=== PATIENT | female | born 1980 | race Caucasian/White ===

== ENCOUNTER → 2024-07-15 14:15 | Outpatient (BNVA) | payer OTHER, SELFPAY | PROVIDERS: Visit Provider Emergency Medicine | DX: R50.9 Fever, unspecified (principal) | CPT/HCPCS: 87400 ==

== ENCOUNTER 2024-10-23 13:44 | Emergency (ER) | payer SELFPAY ==
[2024-10-23 13:59] VITALS: BP 153/78; PULSE 91; RESP 14; TEMP 37; O2SAT 97; BMI 32.9
--- NOTE | 2024-10-23 14:04 | ED_ITS ---
HPI - Fever 2 General: Chief Complaint: Back Pain/Injury Stated Complaint: Low back pain Time Seen by Provider: 10/23/24 13:59 History of Present Illness: 44 yo female patient presents to ER with c/o low back pain for 4-5 days. Pt denies any injury or trauma. Pt states everything feels tight. Pt denies any fever, loss of bowel or bladder or numbness or tingling. Related Data Home Medications ?Medication ?Instructions ?Recorded ?Confirmed ibuprofen 200 mg tablet (Advil) 800 mg PO Q6H PRN Feve r Or Pain 10/23/24 10/23/24 Previous Rx's ?Medication ?Instructions ?Recorded albuterol sulfate 90 mcg/actuation 2 puff inhalation Q 6H PRN 07/15/24 aerosol inhaler shortness of breath or wheez ing #8.5 grams prednisone 20 mg tablet 20 mg PO BID 5 days #10 tabs 10/23/24 tizanidine 4 mg tablet 2 mg (1/2 x 4 mg) PO TID PRN 10/23/24 muscle spasticity #20 tabs Allergies Allergy/AdvReac Type Severity Reaction Status Date / Time No Known Allergies Allergy Verified 10/23/24 14:06 Review of Systems 2 General: Reports: 10 or more systems reviewed and unremarkable except in HPI and below PFSH ED 2 PFSH: Social History Smoking and tobacco/nicotine status: never used tobacco/nicotine Physical Exam 2 Const: COMMON NORMALS: no acute distress, patient oriented x3 and no limitations GENERAL APPEARANCE: cooperative, comfortable and well developed ORIENTATION/CONSCIOUSNESS: Yes awake, Yes oriented to person, Yes oriented to place and Yes oriented to time Resp: COMMON NORMALS: normal respiratory effort Cardio: COMMON NORMALS: regular rate and regular rhythm RATE: regular rate RHYTHM: regular rhythm Extremity: COMMON NORMALS: normal to inspection, full ROM and capillary refill normal Neuro: COMMON NORMALS: patient oriented x3, moves all extremities, no focal motor deficits and no sensory deficits noted SENSORIUM/ORIENTATION: Yes oriented to person, Yes oriented to place and Yes oriented to time Psych: COMMON NORMALS: mental status grossly normal and Normal thought process present THOUGHT PROCESS: Normal thought process present Skin: COMMON NORMALS: no rashes or lesions noted GENERAL SKIN EXAM: no rashes or lesions noted Course 2 Vital Signs: Vital signs: Vital Signs Temperature 98.6 F 10/23/24 13:59 Pulse Rate 84 10/23/24 16:00 Respiratory Rate 14 10/23/24 13:59 Blood Pressure 142/87 10/23/24 16:00 Pulse Oximetry 98 10/23/24 16:00 Oxygen Delivery Me thod Room Air 10/23/24 16:00 MDM - Fever Medical Decision Making emale patient presents to ER with c/o low back pain for 4-5 days. Pt denies any injury or trauma. Pt states everything feels tight. Pt denies any fever, loss of bowel or bladder or numbness or tingling. Pt denies any midline tenderness. Pt has no CVA tendernss. CT abd pelvis negative for any acute findings no obstruction or stone noted. Pt was given toradol and states pain is better. UA is without evidence of onfection. will send home with short course of steroids and muscle relaxer as well as return precautions and follow up Lab Data 10/23/24 15:19 10/23/24 15:19 Radiology Impressions Abdomen/Pelvis CT 10/23/24 15:01 IMPRESSION: 1. No acute findings. 2. No urinary calculi. 3. Chronic findings. Laboratory Results WBC 9.92 10^3/uL (3.29-11.43) 10/23/24 15:19 RBC 4.80 10^6/uL (3.85-5.65) 10/23/24 15:19 Hgb 11.90 g/dL (11.27-16.99) 10/23/24 15:19 Hct 37.7 % (36-47) 10/23/24 15:19 MCV 78.5 fl (85-98) L 10/23/24 15:19 MCH 24.8 pg (27-33) L 10/23/24 15:19 MCHC 31.6 g/dL (30-55) 10/23/24 15:19 RDW 15.9 % (12.1-15.1) H 10/23/24 15:19 Plt Count 316 10^3/cmm (157-399) 10/23/24 15:19 MPV 9.3 fL (7.4-10.4) 10/23/24 15:19 Neut % (Auto) 66.6 % 10/23/24 15:19 Lymph % (Auto) 21.9 % 10/23/24 15:19 [place] % (Auto) 6.7 % 10/23/24 15:19 Eos % (Auto) 3.8 % 10/23/24 15:19 Baso % (Auto) 0.6 % 10/23/24 15:19 Neut # (Auto) 6.61 10^3/uL (1.8-7.7) 10/23/24 15:19 Lymph # (Auto) 2.2 10^3/uL (0.8-4.8) 10/23/24 15:19 [place] # (Auto) 0.7 10^3/uL (0.2-0.9) 10/23/24 15:19 Eos # (Auto) 0.4 10^3/uL (0.0-0.8) 10/23/24 15:19 Baso # (Auto) 0.1 10^3/uL (0.0-0.1) 10/23/24 15:19 Nucleated RBC % (auto) 0 % 10/23/24 15:19 Nucleated RBCs # 0.0 /100WBC 10/23/24 15:19 Sodium 137 mmol/L (136-145) 10/23/24 15:19 Potassium 3.9 mmol/L (3.5-5.1) 10/23/24 15:19 Chloride 107 mmol/L (98-107) 10/23/24 15:19 Carbon Dioxide 21 mmol/L (22-29) L 10/23/24 15:19 Anion Gap 12.9 (5-19) 10/23/24 15:19 BUN 13 mg/dL (6-20) 10/23/24 15:19 Creatinine 0.8 mg/dL (0.5-0.9) 10/23/24 15:19 GFR Calculation 77.6 mL/min (90-130) L 10/23/24 15:19 Glucose 127 mg/dL (65-115) H 10/23/24 15:19 Calculated Osmolality 286 mOsm/kg (285-295) 10/23/24 15:19 Calcium 9.0 mg/dL (8.5-10.5) 10/23/24 15:19 Total Bilirubin 0.2 mg/dL (0.15-1.2) 10/23/24 15:19 AST 14 U/L (0-32) 10/23/24 15:19 ALT 12 U/L (0-33) 10/23/24 15:19 Alkaline Phosphatase 88 U/L (35-105) 10/23/24 15:19 Total Protein 6.9 g/dL (6.6-8.7) 10/23/24 15:19 Albumin 3.9 g/dL (3.5-5.2) 10/23/24 15:19 Globulin 3.0 g/dL (1.3-4.6) 10/23/24 15:19 Urine Color Yellow (Yellow) 10/23/24 14:48 Urine Appearance Clear (CLEAR) 10/23/24 14:48 Urine pH 5.0 (5-7) 10/23/24 14:48 Ur Specific [place] 1.027 (1.005-1.030) 10/23/24 14:48 Urine Protein Negative (Negative) 10/23/24 14:48 Urine Glucose (UA) Negative (Normal) 10/23/24 14:48 Urine Ketones Trace (Negative) 10/23/24 14:48 Urine Blood Trace (Negative) A 10/23/24 14:48 Urine Nitrate Negative (Negative) 10/23/24 14:48 Urine Bilirubin Negative (Negative) 10/23/24 14:48 Urine Urobilinogen 1.0 mg/dL (Negative) 10/23/24 14:48 Ur Leukocyte Esterase Negative (Negative) 10/23/24 14:48 Urine RBC 0-2 /hpf (0-2) 10/23/24 14:48 Urine WBC 0-5 /hpf (0-5) 10/23/24 14:48 Ur Squamous Epith Cells 0-5 /hpf (0-5) 10/23/24 14:48 Amorphous Sediment Not Reportable 10/23/24 14:48 Urine Bacteria None seen /hpf (NONE) 10/23/24 14:48 Hyaline Casts 2.05 /lpf 10/23/24 14:48 All radiology interpretation(s) finalized by discharge Discharge Plan Discharge Patient Disposition: Home Clinical Impression: Strain of lumbar region Qualifiers: Encounter type: initial encounter Qualified Code(s): S39.012A - Strain of muscle, fascia and tendon of lower back, initial encounter Condition: Stable Prescriptions: New prednisone 20 mg tablet 20 mg PO BID 5 Days Qty: 10 0RF tizanidine 4 mg tablet 2 mg PO TID PRN (Reason: muscle spasticity) Qty: 20 0RF No Action albuterol sulfate 90 mcg/actuation HFA aerosol inhaler 2 puff inhalation Q6H PRN (Reason: shortness of breath or wheezing) Qty: 8.5 0RF ibuprofen [Advil] 200 mg Tablet 800 mg PO Q6H PRN (Reason: Fever Or Pain) Discharge Orders: Discharge ED (Routine); Ordered 10/23/24 Ordered By: Virgen Nolen Discharge Diet: Advance as tolerated Discharge Activity: Increase activity as tolerated Patient Instructions: Opioid Safety, Pain Management, Acute Low Back Pain (ED) Activity Restrictions/Additional Instructions: Return to ER if emale patient presents to ER with c/o low back pain for 4-5 days. Pt denies any injury or trauma. Pt states everything feels tight. Pt denies any fever, loss of bowel or bladder or numbness or tingling. Take meds as prescribed Please do not drive or operate heavy machinery while taking tizanadine Print Language: Libyan Coding Level of Care Code ED Cow Trimmer for Olvin Yu
[2024-10-23 14:45] VITALS: BP 180/95; PULSE 100; O2SAT 97
[2024-10-23] MEDS: ketorolac 30 mg/mL INJ IM (14:52)
[2024-10-23 14:54] LABS: Bilirubin Urine Negative (Negative); Blood Urine Trace (Negative); Glucose Urine UA Negative (Normal); Ketones Urine Trace (Negative); Leukocyte Esterase Urine Negative (Negative); Nitrate Urine Negative (Negative); Protein Urine Negative (Negative); Specific Gravity, Urine 1.027 (1.005-1.030); Urine Appearance Clear (CLEAR); Urine Color Yellow (Yellow)
[2024-10-23 14:56] LABS: Add Urine Microscopic? YES; Bacteria Urine None Seen /hpf; Hyaline Casts Urine 2.05 /lpf; RBC Urine 0-2 /hpf (0-2); Squamous Epithelial Cell Urine 0-5 /hpf (0-5); WBC Urine 0-5 /hpf (0-5)
--- NOTE | 2024-10-23 15:01 | CTR_ITS ---
PROCEDURE INFORMATION: Exam: CT Abdomen And Pelvis Without Contrast Exam date and time: 10/23/2024 3:33 PM Age: 44 years old Clinical indication: Low back pain x 4 days; Additional info: Stone TECHNIQUE: Imaging protocol: Computed tomography of the abdomen and pelvis without contrast. Radiation optimization: All CT scans at this facility use at least one of these dose optimization techniques: automated exposure control; mA and/or kV adjustment per patient size (includes targeted exams where dose is matched to clinical indication); or iterative reconstruction. COMPARISON: No relevant prior studies available. RADIATION DOSE METRICS: Total DLP (mGy-cm): 893.13 FINDINGS: Lungs: Bilateral dependent pulmonary atelectasis is demonstrated within the lungs. Liver: Unremarkable. No mass. Gallbladder and biliary ducts: Unremarkable. No calcified stones. No ductal dilation. Pancreas: Unremarkable. Spleen: Unremarkable. No splenomegaly. Adrenal glands: Normal. No mass. Kidneys and ureters: Unremarkable. No hydronephrosis or calculi. Stomach and bowel: Unremarkable. No obstruction, ileus or definite inflammation. Appendix: No evidence of appendicitis. Intraperitoneal space: No free air. No significant fluid collection. Vasculature: Mild atherosclerotic arterial vascular wall calcifications are demonstrated. Mild atherosclerotic calcification demonstrated within the aorta. Lymph nodes: No enlarged lymph nodes. Urinary bladder: Urinary bladder appears small in size, limiting further assessment. The urinary bladder appears otherwise unremarkable. Reproductive: Unremarkable as visualized. Bones/joints: Bilateral L4 spondylolysis is demonstrated. Mild to moderate generalized bony degenerative changes. Posterior disc bulge at L4-L5 level with mild central canal narrowing on axial image 113. Bony structures appear otherwise unremarkable. Soft tissues: Unremarkable. CT/CT kidney stone [id number] IMPRESSION: 1. No acute findings. 2. No urinary calculi. 3. Chronic findings.
[2024-10-23 15:26] LABS: Basophils # 0.1 10^3/uL (0.0-0.1); Basophils % 0.6 %; Eosinophils # 0.4 10^3/uL (0.0-0.8); Eosinophils % 3.8 %; Hematocrit 37.7 % (36-47); Lymphocytes # 2.2 10^3/uL (0.8-4.8); Lymphocytes % 21.9 %; Mean Corpuscular HGB Conc 31.6 g/dL (30-55); Mean Corpuscular Hemoglobin 24.8 pg (27-33); Mean Corpuscular Volume 78.5 fl (85-98); Mean Platelet Volume 9.3 fL (7.4-10.4); Monocytes # 0.7 10^3/uL (0.2-0.9); Monocytes % 6.7 %; Neutrophils # 6.61 10^3/uL (1.8-7.7); Neutrophils % 66.6 %; Nucleated Red Blood Cells % 0 %; Platelet Count 316 10^3/cmm (157-399); Red Cell Distribution Width 15.9 % (12.1-15.1); White Blood Count 9.92 10^3/uL (3.29-11.43)
[2024-10-23 15:41] LABS: Alanine Aminotransferase 12 U/L (0-33); Albumin Level 3.9 g/dL (3.5-5.2); Alkaline Phosphatase 88 U/L (35-105); Anion Gap 12.9 (5-19); Aspartate Amino Transferase 14 U/L (0-32); Blood Urea Nitrogen 13 mg/dL (6-20); Carbon Dioxide 21 mmol/L (22-29); Chloride 107 mmol/L (98-107); Creatinine Clr Calc Pharmacy 101.7691; Glomerular Filtration Rate 77.6 mL/min (90-130); Glucose 127 mg/dL (65-115); Osmolality Calculated 286 mOsm/kg (285-295); Potassium 3.9 mmol/L (3.5-5.1); Sodium 137 mmol/L (136-145); Total Bilirubin 0.2 mg/dL (0.15-1.2); Total Protein 6.9 g/dL (6.6-8.7)
[2024-10-23 16:00] VITALS: BP 142/87; PULSE 84; O2SAT 98
--- NOTE | 2024-10-23 17:59 | ED_ITS ---
HPI - Back Pain/Injury 2 General: Chief Complaint: Back Pain/Injury Stated Complaint: Low back pain Time Seen by Provider: 10/23/24 13:59 History of Present Illness: duplicate chart please delete Related Data Home Medications ?Medication ?Instructions ?Recorded ?Confirmed ibuprofen 200 mg tablet (Advil) 800 mg PO Q6H PRN Feve r Or Pain 10/23/24 10/23/24 Previous Rx's ?Medication ?Instructions ?Recorded albuterol sulfate 90 mcg/actuation 2 puff inhalation Q 6H PRN 07/15/24 aerosol inhaler shortness of breath or wheez ing #8.5 grams prednisone 20 mg tablet 20 mg PO BID 5 days #10 tabs 10/23/24 tizanidine 4 mg tablet 2 mg (1/2 x 4 mg) PO TID PRN 10/23/24 muscle spasticity #20 tabs Allergies Allergy/AdvReac Type Severity Reaction Status Date / Time No Known Allergies Allergy Verified 10/23/24 14:06 PFS ED 2 PFSH: Social History Smoking and tobacco/nicotine status: never used tobacco/nicotine Course 2 Vital Signs: Vital signs: Vital Signs Temperature 98.6 F 10/23/24 13:59 Pulse Rate 86 10/23/24 18:08 Respiratory Rate 14 10/23/24 13:59 Blood Pressure 147/83 10/23/24 18:08 Pulse Oximetry 100 10/23/24 18:08 Oxygen Delivery Me thod Room Air 10/23/24 16:00 MDM - Back Pain/Injury Medical Decision Making duplicate chart please delete Labs 10/23/24 15:19 10/23/24 15:19 Radiology Impressions Abdomen/Pelvis CT 10/23/24 15:01 IMPRESSION: 1. No acute findings. 2. No urinary calculi. 3. Chronic findings. Laboratory Results WBC 9.92 10^3/uL (3.29-11.43) 10/23/24 15:19 RBC 4.80 10^6/uL (3.85-5.65) 10/23/24 15:19 Hgb 11.90 g/dL (11.27-16.99) 10/23/24 15:19 Hct 37.7 % (36-47) 10/23/24 15:19 MCV 78.5 fl (85-98) L 10/23/24 15:19 MCH 24.8 pg (27-33) L 10/23/24 15:19 MCHC 31.6 g/dL (30-55) 10/23/24 15:19 RDW 15.9 % (12.1-15.1) H 10/23/24 15:19 Plt Count 316 10^3/cmm (157-399) 10/23/24 15:19 MPV 9.3 fL (7.4-10.4) 10/23/24 15:19 Neut % (Auto) 66.6 % 10/23/24 15:19 Lymph % (Auto) 21.9 % 10/23/24 15:19 [place] % (Auto) 6.7 % 10/23/24 15:19 Eos % (Auto) 3.8 % 10/23/24 15:19 Baso % (Auto) 0.6 % 10/23/24 15:19 Neut # (Auto) 6.61 10^3/uL (1.8-7.7) 10/23/24 15:19 Lymph # (Auto) 2.2 10^3/uL (0.8-4.8) 10/23/24 15:19 [place] # (Auto) 0.7 10^3/uL (0.2-0.9) 10/23/24 15:19 Eos # (Auto) 0.4 10^3/uL (0.0-0.8) 10/23/24 15:19 Baso # (Auto) 0.1 10^3/uL (0.0-0.1) 10/23/24 15:19 Nucleated RBC % (auto) 0 % 10/23/24 15:19 Nucleated RBCs # 0.0 /100WBC 10/23/24 15:19 Sodium 137 mmol/L (136-145) 10/23/24 15:19 Potassium 3.9 mmol/L (3.5-5.1) 10/23/24 15:19 Chloride 107 mmol/L (98-107) 10/23/24 15:19 Carbon Dioxide 21 mmol/L (22-29) L 10/23/24 15:19 Anion Gap 12.9 (5-19) 10/23/24 15:19 BUN 13 mg/dL (6-20) 10/23/24 15:19 Creatinine 0.8 mg/dL (0.5-0.9) 10/23/24 15:19 GFR Calculation 77.6 mL/min (90-130) L 10/23/24 15:19 Glucose 127 mg/dL (65-115) H 10/23/24 15:19 Calculated Osmolality 286 mOsm/kg (285-295) 10/23/24 15:19 Calcium 9.0 mg/dL (8.5-10.5) 10/23/24 15:19 Total Bilirubin 0.2 mg/dL (0.15-1.2) 10/23/24 15:19 AST 14 U/L (0-32) 10/23/24 15:19 ALT 12 U/L (0-33) 10/23/24 15:19 Alkaline Phosphatase 88 U/L (35-105) 10/23/24 15:19 Total Protein 6.9 g/dL (6.6-8.7) 10/23/24 15:19 Albumin 3.9 g/dL (3.5-5.2) 10/23/24 15:19 Globulin 3.0 g/dL (1.3-4.6) 10/23/24 15:19 Urine Color Yellow (Yellow) 10/23/24 14:48 Urine Appearance Clear (CLEAR) 10/23/24 14:48 Urine pH 5.0 (5-7) 10/23/24 14:48 Ur Specific [place] 1.027 (1.005-1.030) 10/23/24 14:48 Urine Protein Negative (Negative) 10/23/24 14:48 Urine Glucose (UA) Negative (Normal) 10/23/24 14:48 Urine Ketones Trace (Negative) 10/23/24 14:48 Urine Blood Trace (Negative) A 10/23/24 14:48 Urine Nitrate Negative (Negative) 10/23/24 14:48 Urine Bilirubin Negative (Negative) 10/23/24 14:48 Urine Urobilinogen 1.0 mg/dL (Negative) 10/23/24 14:48 Ur Leukocyte Esterase Negative (Negative) 10/23/24 14:48 Urine RBC 0-2 /hpf (0-2) 10/23/24 14:48 Urine WBC 0-5 /hpf (0-5) 10/23/24 14:48 Ur Squamous Epith Cells 0-5 /hpf (0-5) 10/23/24 14:48 Amorphous Sediment Not Reportable 10/23/24 14:48 Urine Bacteria None seen /hpf (NONE) 10/23/24 14:48 Hyaline Casts 2.05 /lpf 10/23/24 14:48 No radiology studies performed this visit Discharge Plan Discharge Patient Disposition: Home Clinical Impression: Strain of lumbar region Qualifiers: Encounter type: initial encounter Qualified Code(s): S39.012A - Strain of muscle, fascia and tendon of lower back, initial encounter Condition: Stable Prescriptions: New prednisone 20 mg tablet 20 mg PO BID 5 Days Qty: 10 0RF tizanidine 4 mg tablet 2 mg PO TID PRN (Reason: muscle spasticity) Qty: 20 0RF No Action albuterol sulfate 90 mcg/actuation HFA aerosol inhaler 2 puff inhalation Q6H PRN (Reason: shortness of breath or wheezing) Qty: 8.5 0RF ibuprofen [Advil] 200 mg Tablet 800 mg PO Q6H PRN (Reason: Fever Or Pain) Discharge Orders: Discharge ED (Routine); Ordered 10/23/24 Ordered By: Virgen Nolen Discharge Diet: Advance as tolerated Discharge Activity: Increase activity as tolerated Patient Instructions: Acute Low Back Pain (ED), Opioid Safety, Pain Management Activity Restrictions/Additional Instructions: Return to ER if Take meds as prescribed Please do not drive or operate heavy machinery while taking tizanadine Print Language: Faroese Coding Level of Care Code ED Tetryl Wringer Operator for Olvin Yu
--- NOTE | 2024-10-23 18:04 | PC.NURSE ---
additional instructions had extra words by mistake, this nurse informed dada psych arnp and she okayed, to be changed.
[2024-10-23 18:08] VITALS: BP 147/83; PULSE 86; O2SAT 100
== END 2024-10-23 18:09 | disposition home or self-care (01) ==
PROVIDERS: Emergency Provider Registered Nurse
DX: S39.012A Strain of muscle, fascia and tendon of lower back, initial encounter (principal); X58.XXXA Exposure to other specified factors, initial encounter
CPT/HCPCS: 36415; 74176; 80053; 81001; 85025; 96372; 99284; J1885